=== PATIENT | male | born 1970 | race Caucasian/White ===

== ENCOUNTER 2021-09-06 13:36 | Outpatient (REF) | payer OTHER, SELFPAY ==
--- NOTE | ~2021-09-06 | US_ITS ---
EXAMINATION: US ABDOMEN COMPLETE CLINICAL INFORMATION: Epigastric abdominal pain. COMPARISON: None TECHNIQUE: Real-time imaging of the abdominal viscera. FINDINGS: PANCREAS: The head and body the pancreas are normal. The tail is not well seen due to bowel gas. ABDOMINAL AORTA: The proximal, mid, and distal segments are normal in caliber. INFERIOR VENA CAVA: Visualized portions are normal. LIVER: Normal. The liver is normal in size. The liver contour is normal. Parenchymal echogenicity is normal. No focal hepatic lesion. There is no intrahepatic biliary duct dilatation seen. GALLBLADDER: Normal. The gallbladder is physiologically distended without evidence of stones, sludge, polyps, wall thickening or pericholecystic fluid. COMMON BILE DUCT: Normal in caliber measuring 0.32 cm in diameter. RIGHT KIDNEY: Normal. No hydronephrosis. No renal calculi or focal parenchymal lesions. The kidney measures 12.8 cm in maximum dimension. LEFT KIDNEY: Normal. No hydronephrosis. No renal calculi or focal parenchymal lesions. The kidney measures 12.8 cm in maximum dimension. SPLEEN: Normal. The spleen measures 10.7 cm in maximum dimension. FREE FLUID: None. US/US abdomen complete IMPRESSION: Limited visualization of the tail the pancreas otherwise normal abdominal ultrasound.
== END 2021-09-06 13:37 | disposition home or self-care (01) ==
LOC: HO.HMGCX 13:36
PROVIDERS: Visit Provider Internal Medicine Medical Oncology
DX: R10.13 Epigastric pain (principal)
CPT/HCPCS: 76700

== ENCOUNTER 2022-06-12 08:55 | Emergency (ER) | payer OTHER, SELFPAY ==
--- NOTE | ~2022-06-12 | XR_ITS ---
EXAMINATION: XR CHEST CLINICAL INFORMATION: Palpitations COMPARISON: None TECHNIQUE: 2 views of the chest were obtained. FINDINGS: No significant abnormality is noted involving the heart, lungs, mediastinum, bony thorax or soft tissues. XR/XR chest 2V IMPRESSION: Unremarkable chest examination.
[2022-06-12 08:58] VITALS: BP 154/85; PULSE 87; RESP 18; TEMP 36.6; O2SAT 98; BMI 38.7
--- NOTE | 2022-06-12 09:19 | ECG_ITS ---
Test Reason : PALPITATIONS Blood Pressure : / mmHG Vent. Rate : 086 BPM Atrial Rate : 000 BPM P-R Int : 000 ms QRS Dur : 104 ms QT Int : 354 ms P-R-T Axes : 000 -01 011 degrees QTc Int : 423 ms Atrial fibrillation Abnormal ECG No previous ECGs available Referred By: Judie Chowdhury Electronically Signed By:RENÉE ZHENG MD
--- NOTE | 2022-06-12 09:29 | ED.ARRPALP ---
HPI - Arrhythmia/Palpitations General Chief Complaint: Arrhythmia/Palpitations Stated Complaint: feels funny heart rate Time Seen by Provider: 06/12/22 09:18 Source: patient and family Mode of arrival: ambulatory Limitations: no limitations History of Present Illness HPI narrative: 52-year-old male with a history of hypertension presents with complaints of heart palpitations since yesterday. Per patient yesterday with waking he felt like his heart was racing and irregular. He seemed to feel better throughout the day but has similar episodes this morning. He used his 's Apple watch which told him that he was in atrial fibrillation with a heart rate of 80. He denies any history of AFib. No chest pain, shortness of breath, leg swelling or leg pain, fevers, chills, cough. Related Data Home Medications Medication Instructions Recorded Confirmed lisinopril 10 mg tablet 10 mg PO DAILY 04/14/20 tadalafil 20 mg tablet 20 mg PO DAILY PRN 04/14/20 Previous Rx's Medication Instructions Recorded apixaban 5 mg tablet (Eliquis) 5 mg PO BID #60 tabs 06/12/22 metoprolol succinate 25 mg 25 mg PO DAILY #30 tabs 06/12/22 tablet,extended release 24 hr (Toprol XL) Allergies Allergy/AdvReac Type Severity Reaction Status Date / Time No Known Allergies Allergy Verified 06/12/22 09:09 Review of Systems Review of Systems: Yes all other systems are reviewed and are negative Constitutional: Constitutional: Reports no additional constitutional complaints, Denies body ache(s), Denies chills, Denies fever(s), Denies headache(s) and Denies weakness Eyes: Eyes: Reports no additional eye complaints and Denies change in vision ENT: Reports system reviewed and no additional complaints, except as documented, Denies dizziness, Denies headache(s), Denies nasal congestion, Denies nasal discharge and Denies neck pain Cardiovascular: Cardiovascular: Reports no additional cardiovascular complaints, Denies chest pain, Denies leg edema, Reports palpitations and Denies dyspnea Respiratory: Respiratory: Reports no additional respiratory complaints, Denies cough and Denies dyspnea Gastrointestinal: Gastrointestinal: Reports no additional gastrointestinal complaints, Denies abdominal pain, Denies diarrhea, Denies nausea and Denies vomiting Genitourinary: Genitourinary: Denies urinary incontinence Musculoskeletal: Musculoskeletal: Reports no additional musculoskeletal complaints, Denies back pain, Denies arthralgias, Denies joint swelling, Denies neck pain, Denies numbness and Denies tingling Integumentary/Breasts: Skin/Breast: Reports system reviewed and no additional complaints, except as docu and Denies rash Neurologic: Reports system reviewed and no additional complaints, except as documented, Denies Abnormal speech present, Denies dizziness, Denies headache(s), Denies numbness, Denies tingling and Denies weakness Endocrine: Endocrine: Reports palpitations PMFSH Past Medical History Attestation statement: The following information was validated with the patient. Source: old records reviewed and nursing notes reviewed Medical History Hypertension Surgical History History of bone marrow biopsy History of lymph node biopsy Social History Social History Advance Directives: No Advance Directives Information Provided: Yes Physical Exam Vital Signs: Vital Signs: Last Vital Signs Temp 97.8 F 06/12/22 08:58 Pulse 92 06/12/22 11:21 Resp 18 06/12/22 11:21 BP 118/83 06/12/22 11:21 Pulse Ox 96 06/12/22 11:21 O2 Del Method 06/12/22 11:21 BMI result Body Mass Index 38.7 Const: General: cooperative, healthy appearing, comfortable and no acute distress Orientation/consciousness: patient oriented x3 Limitations: no limitations HEENT: Head: Yes normal to inspection Ears: hearing grossly normal bilaterally General nose exam: Normal external nose present Face and sinus: Yes normal facial exam Mouth: Normal oral and palatal mucosa present Throat: Yes posterior oropharynx normal Eyes: General: appearance normal, both eyes and all related structures Pupils: Equal, round and reactive pupils present Neck: Neck: Yes normal visual inspection Chest: Chest palpation & inspection: normal inspection of the chest Resp: Effort & Inspection: normal respiratory effort Auscultation: clear to auscultation bilaterally Cardio: Rate: regular rate Rhythm: abnormal rhythm irregularly irregular Peripheral pulses: Peripheral pulses 2+ throughout GI: Inspection: Yes normal to inspection Palpation (GI): Soft to palpation and nontender Auscultation: normal bowel sounds Back/Spine/Pelvis: Thoracic/Lumbar Spine: thoracic and lumbar spine normal to inspection Skin: General skin exam: no rashes or lesions noted Neuro: General: patient oriented x3, no focal motor deficits and normal sensation to monofilament Cranial nerves: Yes Equal, round and reactive pupils present Cognition (Neuro): normal cognition Speech: No Abnormal speech present Gait exam (Neuro): Normal gait present Motor exam (neuro): 5/5 motor strength present throughout Extrem: General: Yes normal to inspection, Yes no pedal edema and Yes no calf tenderness Medical Decision Making Medical Decision Making [facility] Narrative: 52-year-old male with history of hypertension presents with heart palpitations since yesterday. Patient reports his Apple watch told him he was in AFib with a heart rate of 80. On arrival vital stable. Irregular pulse. Lungs clear. Will obtain EKG, labs, chest x-ray, COVID screen Differential Diagnosis Differential Diagnoses: The differential diagnosis associated with the presentation includes AFib Admission/Observation Consideration of admission/observation: Escalation of care including admission/observation considered Rate is controlled-patient with mild symptoms Chads score is 1 for hypertension history Admission not necessary Consult Healthcare Provider Management of the patient was discussed with: Cosmetic Dentist (Cardiology) Spoke to Dr. Garcia from Cardiology. Plans for discharge home with Cardiology follow-up. We discussed anticoagulating the patient as he is low risk with a chads score of 1. However cardiology anticipate that patient will likely be cardioverted outpatient and due to this we will start him on anticoagulation. Also recommended Toprol 25 mg XL daily. Patient was given instructions on starting anticoagulation. He was given a 30 day free trial coupon. He received his 1st dose in the emergency room. Lab Data [facility] Lab Attestation statement: I reviewed the patient's lab results. 06/12/22 09:56 06/12/22 09:56 Labs: Lab Results 06/12/22 06/12/22 06/12/22 Range/Units 09:56 09:56 09:56 WBC 9.5 (4.8-10.8) X10*3/uL RBC 5.23 (4.60-5.80) X10*6/uL Hgb 16.0 (14.0-18.0) g/dl Hct 46.6 (42.0-52.0) % MCV 89.1 (80.0-98.0) fL MCH 30.6 (27.0-33.0) pg MCHC 34.3 (31.0-36.0) g/dl RDW 12.7 (11.0-16.0) % Plt Count 275 (160-400) X10*3/uL MPV 8.6 L (9.4-12.4) fL Immature Gran % (Auto) 0.4 (0.0-0.4) % Neut % (Auto) 73.1 H (45-73) % Lymph % (Auto) 18.4 L (20-40) % Kings[place] % (Auto) 5.9 (2-11) % Eos % (Auto) 1.7 (0-4) % Baso % (Auto) 0.5 (0-2) % Lymph # (Auto) 1.8 (1.2-4.9) X10*3/uL [place] # (Auto) 0.6 (0.1-1.2) X10*3/uL Eos # (Auto) 0.2 (0.0-0.4) X10*3/uL Baso # (Auto) 0.1 (0.0-0.2) X10*3/uL Abs Immat Gran (auto) 0.04 H (0.00-0.03) X10*3/uL Absolute Neuts (auto) 7.0 (2.0-8.3) x10*3/uL Absolute Nucleated RBC 0.000 (0.0-0.012) X10*3/uL Nucleated RBC % (auto) 0.0 (0.0-0.2) /100WBC PT 12.1 (10.0-13.1) SEC INR 1.1 (0.9-1.1) Sodium 140 (135-145) mmol/L Potassium 4.2 (3.3-5.1) mmol/L Chloride 109 H (96-108) mmol/L Carbon Dioxide 24 (22-29) mmol/L Anion Gap 11 L (12-20) BUN 12 (9-16) mg/dL Creatinine 0.86 (0.5-1.4) mg/dL Estim Creat Clear Calc 126.8 Estimated GFR > 60 Random Glucose 109 (60-115) mg/dL Calcium 9.1 (8.4-10.2) mg/dL Magnesium 1.9 (1.6-2.6) mg/dL Total Bilirubin 1.1 H (0.0-1.0) mg/dL Direct Bilirubin 0.3 (0.0-0.5) mg/dL AST 16 (5-37) U/L ALT 17 (0-40) U/L Alkaline Phosphatase 75 (39-117) U/L Troponin I High Sens (<3.5-35.0) ng/L Total Protein 7.0 (6.5-8.0) g/dL Albumin 4.1 (3.5-5.0) g/dL TSH (0.32-4.0) uIU/mL COVID-19 (CAT) (Negative) COVID-19 Clin Com 06/12/22 06/12/22 06/12/22 Range/Units 09:56 10:07 10:07 WBC (4.8-10.8) X10*3/uL RBC (4.60-5.80) X10*6/uL Hgb (14.0-18.0) g/dl Hct (42.0-52.0) % MCV (80.0-98.0) fL MCH (27.0-33.0) pg MCHC (31.0-36.0) g/dl RDW (11.0-16.0) % Plt Count (160-400) X10*3/uL MPV (9.4-12.4) fL Immature Gran % (Auto) (0.0-0.4) % Neut % (Auto) (45-73) % Lymph % (Auto) (20-40) % Kingsbury % (Auto) (2-11) % Eos % (Auto) (0-4) % Baso % (Auto) (0-2) % Lymph # (Auto) (1.2-4.9) X10*3/uL Kingsbury # (Auto) (0.1-1.2) X10*3/uL Eos # (Auto) (0.0-0.4) X10*3/uL Baso # (Auto) (0.0-0.2) X10*3/uL Abs Immat Gran (auto) (0.00-0.03) X10*3/uL Absolute Neuts (auto) (2.0-8.3) x10*3/uL Absolute Nucleated RBC (0.0-0.012) X10*3/uL Nucleated RBC % (auto) (0.0-0.2) /100WBC PT (10.0-13.1) SEC INR (0.9-1.1) Sodium (135-145) mmol/L Potassium (3.3-5.1) mmol/L Chloride (96-108) mmol/L Carbon Dioxide (22-29) mmol/L Anion Gap (12-20) BUN (9-16) mg/dL Creatinine (0.5-1.4) mg/dL Estim Creat Clear Calc Estimated GFR Random Glucose (60-115) mg/dL Calcium (8.4-10.2) mg/dL Magnesium (1.6-2.6) mg/dL Total Bilirubin (0.0-1.0) mg/dL Direct Bilirubin (0.0-0.5) mg/dL AST (5-37) U/L ALT (0-40) U/L Alkaline Phosphatase (39-117) U/L Troponin I High Sens 3.6 (<3.5-35.0) ng/L Total Protein (6.5-8.0) g/dL Albumin (3.5-5.0) g/dL TSH 0.92 (0.32-4.0) uIU/mL COVID-19 (CAT) Negative (Negative) COVID-19 Clin Com See Note Independent Interpretation I performed an independent interpretation of an: EKG (EKG shows AFib with rate of 86-I independently reviewed the EKG) and Plain X-Ray (I independently reviewed the chest x-ray which shows no acute finding) Radiology Impression Discussion of test interpretation with radiology: I have reviewed the radiologist's reading. Radiologist Impression: EXAMINATION: XR CHEST CLINICAL INFORMATION: Palpitations COMPARISON: None TECHNIQUE: 2 views of the chest were obtained. FINDINGS: No significant abnormality is noted involving the heart, lungs, mediastinum, bony thorax or soft tissues. XR/XR chest 2V IMPRESSION: Unremarkable chest examination. Independent Historian Clinical information obtained from an independent historian. History obtained from or confirmed by: Spouse Chronic Conditions Patient?s care impacted by: Hypertension Discharge Plan Discharge Clinical Impression: Atrial fibrillation Patient Disposition: Home, Self-Care Instructions: A-fib (Atrial Fibrillation) (DC), Blood Thinners (ED) Additional Instructions: Your heart is in a irregular rhythm. We spoke to the jewel gauger. They will plan on seeing you outpatient in you may need a cardioversion We are putting on blood thinning medication. Be aware that this puts you at increased risk for bleeding. Please return if you fall and hit your head, have blood in her stool or in her urine Prescriptions: New metoprolol succinate [Toprol XL] 25 mg tablet extended release 24 hr 25 mg PO DAILY Qty: 30 0RF Eliquis 5 mg tablet 5 mg PO BID Qty: 60 0RF Referrals: Pelon Garcia MD [Physician] - 1 week
[2022-06-12 10:02] LABS: MANUAL DIFF FLAG NO
[2022-06-12 10:07] LABS: Basophils Absolute Auto 0.1 X10*3/uL (0.0-0.2); Basophils Percent Auto 0.5 % (0-2); Eosinophils Absolute Auto 0.2 X10*3/uL (0.0-0.4); Eosinophils Percent Auto 1.7 % (0-4); Hematocrit 46.6 % (42.0-52.0); Imm Gran Abs Auto 0.04 X10*3/uL (0.00-0.03); Imm Gran Pct Auto 0.4 % (0.0-0.4); Lymphocytes Absolute Auto 1.8 X10*3/uL (1.2-4.9); Lymphocytes Percent Auto 18.4 % (20-40); Mean Corpuscular HGB Conc 34.3 g/dl (31.0-36.0); Mean Corpuscular Hemoglobin 30.6 pg (27.0-33.0); Mean Corpuscular Volume 89.1 fL (80.0-98.0); Mean Platelet Volume 8.6 fL (9.4-12.4); Monocytes Absolute Auto 0.6 X10*3/uL (0.1-1.2); Monocytes Percent Auto 5.9 % (2-11); Neutrophils Percent Auto 73.1 % (45-73); Platelet Count 275 X10*3/uL (160-400); Red Blood Count 5.23 X10*6/uL (4.60-5.80); Red Cell Distribution Width 12.7 % (11.0-16.0); White Blood Count 9.5 X10*3/uL (4.8-10.8)
--- NOTE | 2022-06-12 10:15 | PC.NURSE ---
Patient AOx 4 neuros intact denies SOB or chest pain, felt palpitations yesterday found to be in A fib no history of A fib. No facial droop no deviation of tongue PEÑA with purpose no drift noted IV acces obtained labs collected and sent patient had X ray
[2022-06-12 10:16] LABS: INTERNATIONAL NORM RATIO 1.1 (0.9-1.1); Prothrombin Time 12.1 SEC (10.0-13.1)
[2022-06-12 10:29] LABS: COVID-19 Test Negative (Negative); IDNOW Serial# 16C4AD1C
[2022-06-12 10:34] LABS: Alanine Aminotransferase 17 U/L (0-40); Albumin Level 4.1 g/dL (3.5-5.0); Alkaline Phosphatase 75 U/L (39-117); Anion Gap 11 (12-20); Aspartate Amino Transferase 16 U/L (5-37); Bilirubin Direct 0.3 mg/dL (0.0-0.5); Bilirubin Total 1.1 mg/dL (0.0-1.0); Blood Urea Nitrogen 12 mg/dL (9-16); Calcium 9.1 mg/dL (8.4-10.2); Carbon Dioxide 24 mmol/L (22-29); Chloride 109 mmol/L (96-108); Creatinine Clr Calc Pharmacy 126.8; Estimated Glomerular Filt Rate > 60; Glucose Random 109 mg/dL (60-115); Magnesium 1.9 mg/dL (1.6-2.6); Potassium 4.2 mmol/L (3.3-5.1); Sodium 140 mmol/L (135-145)
[2022-06-12 10:41] LABS: Troponin-I High Sensitivity 3.6 ng/L (<3.5-35.0)
[2022-06-12 10:55] LABS: TSH reflex Free T4 0.92 uIU/mL (0.32-4.0)
[2022-06-12 11:21] VITALS: BP 118/83; PULSE 92; RESP 18; O2SAT 96
[2022-06-12] MEDS: Apixaban 5 MG TABLET PO (11:25)
== END 2022-06-12 11:29 | disposition home or self-care (01) ==
PROVIDERS: Nurse Practitioner Family; Emergency Provider Emergency Medicine; PCP Internal Medicine Medical Oncology
DX: R00.2 Palpitations (principal); I48.91 Unspecified atrial fibrillation; Z20.822 Contact with and (suspected) exposure to COVID-19; Z20.828 Contact with and (suspected) exposure to other viral communicable diseases; Z79.899 Other long term (current) drug therapy
CPT/HCPCS: 36415; 71046; 80048; 80076; 83735; 84443; 84484; 85025; 85610; 87635; 93005; 99284

== ENCOUNTER → 2022-06-23 14:10 | Outpatient (BNVA) | payer OTHER, SELFPAY | PROVIDERS: PCP Internal Medicine Medical Oncology; Visit Provider Nurse Practitioner Family | DX: I48.91 Unspecified atrial fibrillation (principal) | CPT/HCPCS: 93005 ==

== ENCOUNTER → 2022-07-04 07:43 | Outpatient (REF) | payer OTHER, SELFPAY ==
--- NOTE | 2022-07-04 07:50 | HM_ITS ---
* Total monitoring time approximately 3 days. * Underlying rhythm is sinus. Average ventricular rate 58/Min. Range 42 to 93/Min. * Very rare PVCs and PACs. Minimal burden. * No significant pauses or AV blocks. * No diary events or marker. MTDD
--- NOTE | 2022-07-04 07:50 | CA_ITS ---
Transthoracic Echocardiogram Patient (Last, First, Middle): RICK ESTRELLA, Gender: Male Date of : 1970 Age: 52 Procedure Date: 07/04/2022 Procedure Type: Transthoracic Echocardiogram Location: OP Height: 185.42 cm Weight: 115.67 kg BSA: 2.39 m2 Heart Rate: 64 bpm BP: 114 / 68 mmHg Ethnic Studies Professor: ED Referring MD: Qi Simth VAT TENDER[employer] Chemistry Technician: Kamran Morris MD Symptoms: I48.91 - Unspecified atrial fibrillation Study Quality: Technically Difficult ECG Rhythm: Sinus Conclusions: - 1. Technically limited study despite use of contrast agent 2. Normal LV systolic function with impaired relaxation filling pattern 3. Limited visualization cardiac well with cardiac valvular Doppler within normal limits Findings Procedure Information Contrast agent, definity, is being given per protocol without apparent complications. Left Ventricle Normal left ventricular size, thickness, and systolic function. The visually estimated ejection fraction is between 55-60%. Spectral Doppler is indicative of an impaired relaxation filling pattern. E/E prime ratio is between 8 and 15 consistent with indeterminate filling pressures. Right Ventricle The right ventricle was not well visualized. Atria The left atrium is likely dilated. There is a mobile atrial septum noted. Interatrial shunt cannot be excluded. The right atrium was not well visualized. Aortic Valve The aortic valve structure and function is likely normal. There is no aortic valve stenosis. There is no aortic valve regurgitation. Mitral Valve The mitral valve was not well visualized. There is trace mitral valve regurgitation. There is no mitral valve stenosis. Pulmonic Valve The pulmonic valve was not well visualized. Tricuspid Valve The tricuspid valve was not well visualized. Tricuspid regurgitation envelope is inadequate for calculation of right ventricular systolic pressure. Great Vessels The aorta was not well visualized. The pulmonary artery was not well visualized. Venous The inferior vena cava is normal in size and collapses greater than 50% with inspiration. Pericardium/Pleural The pericardium was not well visualized. Prior Study Comparison No prior study available for comparison. Measurements 2D Linear Measurements IVSd: 1.08 0.6-0.9/0.6-1.0 cm LVIDd: 5.58 3.9-5.3/4.2-5.9 cm LVIDd Index: 2.33 2.4-3.2/2.2-3.1 cm/m2 LVIDs: 3.99 2.0-3.6 cm LVPWd: 0.67 0.7-1.1 cm LA Diam: 4.20 2.7-3.8/3.0-4.0 cm LAIDs Index: 1.76 1.5-2.3 cm/m2 LV Mass: 229.57 67-162/88-224 g LV Mass Index: 96.05 43-95/49-115 g/m2 LVOT Diam: 2.50 3.0+(-)1.3 cm 2D Systolic Function EF 4C: 54.90 >55% EF 2C: 59.60 >55% EF BiP: 58.20 >55% Mitral Valve MV Pk E: 0.75 MV PK A: 0.49 MV Decel Time: 248.00 E/A: 1.50 E'Lateral: 14.20 E'Medial: 9.95 E/E' Med: 7.50 E/E' Lat: 5.30 PHT: 73.00 MVA PHT: 3.01 Decel Kings: 3.02 Aortic Valve AoV Pk Colin: 1.46 AoV Mn Colin: 1.00 AoV VTI: 0.31 AoV Pk Grad: 9.00 Aov Mn Grad: 5.00 CHRISTIANE Cont.VTI: 4.34 LVOT LVOT Pk Colin: 1.37 LVOT Mn Colin: 0.93 LVOT VTI: 0.28 LVOT Pk Grad: 8.00 LVOT Mn Grad: 4.00 LVOT Diam: 2.50 LVOT Area: 4.91 Diastolic Function MV Pk E: 0.75 MV Pk A: 0.49 E/A: 1.50 E'Medial: 9.95 E/E' Med: 7.50 E' Laterial: 14.20 E/E' Lat: 5.30 Right Ventricle TAPSE (mm): 28.10 TVS' Colin: 17.00 Tricuspid Valve RA Press: 3.00 Great Vessels Aorta Sinus of Valsalva: 3.40 2.0-3.5 cm Ao Asc: 3.80 2.1-3.4 cm Pulmonary Valve PV Pk Colin: 1.34 Peak PV Grad: 7.00 Updated in Other Vendor System with Status of Final Kamran Morris MD electronically signed on 07/05/2022 5:11:12 PM with status of Final
== END ==
LOC: HO.CARD 07:43
PROVIDERS: Visit Provider Nurse Practitioner Family
DX: I10 Essential (primary) hypertension (principal); I48.91 Unspecified atrial fibrillation
CPT/HCPCS: 93242; 93306; Q9957

== ENCOUNTER → 2022-07-11 08:49 | Outpatient (REF) | payer OTHER, SELFPAY ==
--- NOTE | 2022-07-11 08:51 | CA_ITS ---
Acquisition Time: 2022-07-11 09:03:55 Total Exercise Time: 00:09:00 Test Indications: AFIB Medications: SEE CHART Protocol: PARIS Max HR: 151 BPM 88% of Pred: 170 BPM Max BP: 220/080 mmHG Max Work Load: 10.1 METS Exercise stress test with exercise 9 min of Paris protocol, achieving 88% MPHR, 10-.1 METs, with fatigue and need to stop, with mild sob, no chest discomfort, with isolated PAC, PVC and few ventricular cuplets, with hypertensive response to exercise with max BP 220/80, without EKG changes meeting criteria for ischemia. In recovery his BP came back down to 142/78. Test reviewed with Dr Garcia Referred By: Qi Smith Overread By: QI SMITH
== END ==
LOC: HO.CARD 08:49
PROVIDERS: Visit Provider Nurse Practitioner Family
DX: I48.91 Unspecified atrial fibrillation (principal)
CPT/HCPCS: 93017

== ENCOUNTER → 2022-07-22 09:27 | Outpatient (REF) | payer OTHER, SELFPAY | LOC: HO.SL 09:27 | PROVIDERS: PCP Internal Medicine Medical Oncology; Visit Provider Nurse Practitioner Family | DX: G47.10 Hypersomnia, unspecified (principal); I10 Essential (primary) hypertension; I48.0 Paroxysmal atrial fibrillation | CPT/HCPCS: 95806 ==

== ENCOUNTER → 2022-08-09 14:08 | Outpatient (BNVA) | payer OTHER, SELFPAY | PROVIDERS: PCP Internal Medicine Medical Oncology; Referring Provider Internal Medicine Medical Oncology; Visit Provider Nurse Practitioner Family | DX: Z13.89 Encounter for screening for other disorder (principal) ==

== ENCOUNTER 2023-02-20 15:24 | Outpatient (AMB) | payer OTHER, SELFPAY ==
--- NOTE | 2023-02-20 15:28 | A.OFFVIS_ITS ---
Intake Vital Signs 02/20/23 15:29 Height 5 ft 8 in Weight 264 lb 8.875 oz BMI 40.2 BP 140/88 H Blood Pressure Location Lt brachial Position Sitting Pulse 69 Intake Visit Reasons: 6 mth f/up DC Intake Note: 6 month follow up Fitting Room Operator Required: No Accompanied by: Self / Same As Patient Allergies No Known Allergies Allergy (Verified 02/20/23 15:30) Medication List - Last Reconciled 02/20/23 by Pelon Garcia MD lisinopril 10 mg PO DAILY metoprolol succinate ER 25 mg PO DAILY tadalafil 20 mg PO DAILY PRN HPI HPI Comments History of Present Illness Details 52 year old with PAF. CHADSVasc 1. Not on anticoagulation. No significant episodes of Afib. Some palpitations off and on but he has apple watch and he has not seen any Afib recordings. BP control ok. [facility] Medical History (Updated 08/09/22 @ 16:46 by JESUS HerreraC) Paroxysmal A-fib Hypertension Surgical History History of lymph node biopsy History of bone marrow biopsy Social History Alcohol intake: current Alcohol intake frequency: a few times a month Alcohol type: beer, wine and hard liquor Patient Tobacco Use Status: Never used Tobacco Review of Systems Const Denies weakness ENT Denies dizziness Card Denies chest pain, Denies chest pain with activity, Denies syncope, Denies rapid heart rate, Denies pedal edema, Denies edema, Denies leg edema, Denies lightheadedness, Denies palpitations, Denies dyspnea, Denies dyspnea on exertion and Denies orthopnea Resp Denies cough, Denies dyspnea and Denies dyspnea on exertion GI Denies hematochezia and Denies change in stool character Musc Denies abnormal gait, Denies muscle cramps, Denies muscle weakness, Denies numbness, Denies radiating pain into limb and Denies tingling Neuro Denies abnormal gait, Denies dizziness, Denies syncope, Denies numbness, Denies tingling and Denies weakness Endo Denies palpitations Physical Exam Vital Signs: Last Vital Signs Pulse 69 02/20/23 15:29 BP 140/88 H 02/20/23 15:29 BMI result Body Mass Index 40.2 GENERAL APPEARANCE: in no acute distress, pleasant. NECK: no carotid bruit, no jugular venous distention. SKIN: no suspicious lesions, warm and dry. HEART: no murmurs, regular rate and rhythm. LUNGS: clear to auscultation bilaterally. ABDOMEN: soft, nontender. EXTREMITIES: no edema. PERIPHERAL PULSES: equal. NEUROLOGIC: No gross deficits, AAO X 3 Assessment & Plan Assessment & Plan (1) Paroxysmal A-fib: Code(s): I48.0 - Paroxysmal atrial fibrillation (2) Hypertension: Code(s): I10 - Essential (primary) hypertension Plan 52-year-old gentleman here for follow-up. He has paroxysmal atrial fibrillation. He is asymptomatic at this point. Chads Vasc is 1 and he has not been on anticoagulation. Clinically stable currently. Continue same medications for now. Follow-up with tone in 6 months. Thank you for allowing me to participate in the care of your patient. Please feel free to contact me if you have any questions. Coding Level of Care Code Est Pt Level 4 (49159) Diagnoses Paroxysmal A-fib I48.0 Hypertension I10
[2023-02-20 15:29] VITALS: BP 140/88; PULSE 69; BMI 40.2
== END 2023-02-20 16:21 | disposition home or self-care (01) ==
PROVIDERS: PCP Internal Medicine Medical Oncology; Visit Provider Internal Medicine Cardiovascular Disease
DX: I48.0 Paroxysmal atrial fibrillation (principal); I10 Essential (primary) hypertension
CPT/HCPCS: 99214

== ENCOUNTER → 2023-02-20 15:24 | Outpatient (BNVA) | payer OTHER, SELFPAY | PROVIDERS: PCP Internal Medicine Medical Oncology; Visit Provider Internal Medicine Cardiovascular Disease ==

== ENCOUNTER 2023-03-07 06:23 | Day surgery (SDC) | payer OTHER, SELFPAY ==
--- NOTE | 2023-03-03 11:10 | HO.ANESPROP2 ---
Documented by User: Marlene Nieves NP 03/03/23 11:12 HPI - Anesthesia Eval Consult details Narrative: 53yo M for Colonoscopy Follows [facility] cardiology for afib. Per 01/2023 office visit, no anticoag PMFSH Active Problems Active Problems: All Active Problems (Updated 03/03/23 @ 10:39 by Erin Jung RN) Obstructive sleep apnea (Acute) Hypersomnia (Acute) Paroxysmal A-fib (Acute) Hypertension (Acute) Past Medical History Medical History Non-Hodgkin lymphoma Paroxysmal A-fib Hypertension Surgical History Surgical History History of lymph node biopsy History of bone marrow biopsy Social History Social History Alcohol intake: current Alcohol intake frequency: holidays/special occasions only Alcohol type: beer, wine and hard liquor Patient Tobacco Use Status: Never used Tobacco Are you DNR?: No Advance Directives: No Advance Directives Information Provided: Yes Meds Allergies Allergy/AdvReac Type Severity Reaction Status Date / Time No Known Allergies Allergy Verified 02/20/23 15:30 Home Medications Medication Instructions Recorded Confirmed Last Taken Type lisinopril 10 mg tablet 10 mg PO DAILY 04/14/20 02/20/23 03/06/23 History Exam Exam Date and Time: March 03, 2023 1110 Pertinent Lab Results Pertinent Lab Results: Laboratory Tests 06/12/22 09:56 WBC 9.5 Hgb 16.0 Hct 46.6 Plt Count 275 Sodium 140 Potassium 4.2 Chloride 109 H Carbon Dioxide 24 BUN 12 Creatinine 0.86 Assessment and Plan Assessment Anesthesia Assessment: Chart Reviewed Documented by User: Itz Oro MD 03/07/23 07:52 PMFSH Past Medical History Medical History Non-Hodgkin lymphoma Paroxysmal A-fib Hypertension Family History Family history of problems with anesthesia: No Surgical History Surgical History History of lymph node biopsy History of bone marrow biopsy History of Problems with Anesthesia: No Social History Social History Alcohol intake: current Alcohol intake frequency: holidays/special occasions only Alcohol type: beer, wine and hard liquor Patient Tobacco Use Status: Never used Tobacco Are you DNR?: No Advance Directives: No Advance Directives Information Provided: Yes Meds Allergies Allergy/AdvReac Type Severity Reaction Status Date / Time No Known Allergies Allergy Verified 02/20/23 15:30 Home Medications Medication Instructions Recorded Confirmed Last Taken Type lisinopril 10 mg tablet 10 mg PO DAILY 04/14/20 02/20/23 03/06/23 History Exam Airway Mallampati Class: II TM Dist: >3cm Neck ROM: Full Assessment and Plan Final Anesthetic Review Family History of Problems with Anesthesia: No History of Problems with Anesthesia: No NPO: Yes ASA Class: III Final Preanesthetic Review: No Changes in Pt Med Stat, Meds/Allgs Chart Reviewed, Consent Obtained/Reviewed and Anes Risks/Benef Reviewed Patient Risk: Intermediate Procedure Risk: Low Anesthetic Plan Disposition: Standard PACU
[2023-03-07 06:27] VITALS: BMI 33.9
[2023-03-07 06:41] VITALS: BP 139/92; PULSE 68; RESP 20; TEMP 36.3; O2SAT 98
--- NOTE | 2023-03-07 07:32 | MHC.SHP ---
Pre-Procedural Eval Section A Date of Service: 03/07/23 Section B Chief Complaint: Screening Details of Present Illness: see H&P no changes Relevant Family History (Specify if Yes): No Relevant Social History: None Present Medications: see Short Stay Collaborative assessment Medical History: No relevant PMH History of Previous Operations: No relevant previous surgery Allergies: Allergies Allergy/AdvReac Type Severity Reaction Status Date / Time No Known Allergies Allergy Verified 02/20/23 15:30 Review of Systems Sugical H&P ROS: Negative: Constitution, Cardiovascular, Respiratory, Neurological, Psychiatric, Hem-Onc, Allergic/Immunologic, Gastrointestinal, Genitourinary, Musculoskeletal, Integumentary, Endocrine and Eyes/Ears/Nose/Throat Exam Surgical H&P Exam: Normal: HEENT, Normal: Heart, Normal: Lungs, Normal: Extremities, Normal: Abdomen, Normal: Skin and Normal: Neurological Plan Diagnosis/Plan: Unchanged I have reviewed the history and physical and performed a pertinent physical examination on my patient. No changes have occurred unless specified. Time Spent With Patient Time: Total time managing care of this patient today ____ minutes.
[2023-03-07 08:11] VITALS: BP 113/73; PULSE 61; RESP 14; TEMP 36.2; O2SAT 96
[2023-03-07 08:26] VITALS: BP 126/72; PULSE 51; RESP 16; O2SAT 99
[2023-03-07 08:36] VITALS: BP 127/77; PULSE 60; RESP 16; TEMP 36.3; O2SAT 98
== END 2023-03-07 08:57 | disposition home or self-care (01) ==
PROVIDERS: PCP Internal Medicine Medical Oncology; Visit Provider Internal Medicine Gastroenterology
PROC: 0DJD8ZZ Inspection of Lower Intestinal Tract, Via Natural or Artificial Opening Endoscopic (ICD-10-PCS; CPT 45378; principal; 2023-03-07 07:30)
DX: Z12.11 Encounter for screening for malignant neoplasm of colon (principal); K63.5 Polyp of colon; K64.8 Other hemorrhoids; I10 Essential (primary) hypertension; C85.90 Non-Hodgkin lymphoma, unspecified, unspecified site; I48.0 Paroxysmal atrial fibrillation; G47.33 Obstructive sleep apnea (adult) (pediatric); Z79.899 Other long term (current) drug therapy
CPT/HCPCS: 45385; 45380; 88305

== ENCOUNTER 2023-08-03 13:28 | Outpatient (REF) | payer OTHER, SELFPAY ==
--- NOTE | ~2023-08-03 | XR_ITS ---
EXAMINATION: XR ABDOMEN COMPLETE CLINICAL INDICATION: Obstruction COMPARISON: NONE TECHNIQUE: 2 views of the abdomen. FINDINGS: Multiple dilated thick-walled small bowel loops are seen, largest diameter in the range of 6.5 cm. Right hemicolonic feces. Paucity of feces and air in the descending colon. Small crescentic air collection in the rectum. Solid visceral outlines are obscured. Lung bases are clear. Degenerative changes are noted. XR/XR abdomen min 2V IMPRESSION: Findings consistent with small bowel obstruction.
[2023-08-03 14:29] LABS: Basophils Absolute Auto 0.1 X10*3/uL (0.0-0.2); Basophils Percent Auto 0.4 % (0-2); Eosinophils Percent Auto 0.3 % (0-4); Hematocrit 45.4 % (42.0-52.0); Imm Gran Abs Auto 0.05 X10*3/uL (0.00-0.03); Imm Gran Pct Auto 0.4 % (0.0-0.4); Lymphocytes Absolute Auto 1.5 X10*3/uL (1.2-4.9); Mean Corpuscular HGB Conc 35.2 g/dl (31.0-36.0); Mean Corpuscular Hemoglobin 30.6 pg (27.0-33.0); Mean Corpuscular Volume 86.8 fL (80.0-98.0); Mean Platelet Volume 9.3 fL (9.4-12.4); Monocytes Absolute Auto 0.9 X10*3/uL (0.1-1.2); Monocytes Percent Auto 7.5 % (2-11); Neutrophils Absolute Auto 9.1 x10*3/uL (2.0-8.3); Neutrophils Percent Auto 78.4 % (45-73); Red Blood Count 5.23 X10*6/uL (4.60-5.80)
[2023-08-03 14:30] LABS: Platelet Count 262 X10*3/uL (160-400); White Blood Count 11.7 X10*3/uL (4.8-10.8)
[2023-08-03 15:01] LABS: Erythrocyte Sedimentation Rate 16 MM/HR (0-15)
[2023-08-03 15:20] LABS: Alanine Aminotransferase 25 U/L (0-40); Albumin Level 4.3 g/dL (3.5-5.0); Alkaline Phosphatase 63 U/L (39-117); Anion Gap 14 (12-20); Aspartate Amino Transferase 20 U/L (5-37); Bilirubin Total 0.8 mg/dL (0.0-1.0); Blood Urea Nitrogen 11 mg/dL (9-16); Calcium 9.6 mg/dL (8.4-10.2); Carbon Dioxide 22 mmol/L (22-29); Chloride 104 mmol/L (96-108); Estimated Glomerular Filt Rate > 60; Glucose Random 107 mg/dL (60-115); Lipase 42 U/L (8-78); Potassium 3.6 mmol/L (3.3-5.1); Sodium 136 mmol/L (135-145); Total Protein 7.8 g/dL (6.5-8.0)
[2023-08-03 16:27] LABS: Amylase 86 U/L (28-100)
== END 2023-08-03 13:29 | disposition home or self-care (01) ==
LOC: HO.XRAY 13:28
PROVIDERS: PCP Internal Medicine Medical Oncology; Visit Provider Internal Medicine Medical Oncology
DX: K56.609 Unspecified intestinal obstruction, unspecified as to partial versus complete obstruction (principal); R10.9 Unspecified abdominal pain
CPT/HCPCS: 36415; 74019; 80053; 82150; 83690; 85025; 85652

== ENCOUNTER 2023-08-04 09:31 | Outpatient (REF) | payer OTHER, SELFPAY ==
--- NOTE | ~2023-08-04 | XR_ITS ---
EXAMINATION: XR ABDOMEN WITH DECUBITUS VIEWS CLINICAL INDICATION: Abdominal pain. COMPARISON: Abdomen at 2:24 PM on 08/03/2023 TECHNIQUE: 2 views. FINDINGS: Upright and supine views of the abdomen reveals scattered dilated small bowel loops in the left upper and midabdomen. The stomach is mildly distended as well. There is scattered stool throughout the colon especially right colon. On upright view there is small bowel air-fluid levels in the upper abdomen. No free air is seen. There is no organomegaly. Moderate bridging osteophyte at L1-L2 disc level is noted. XR/XR abdomen w decubitus IMPRESSION: 1. Dilated small bowel loops in the left upper and mid abdomen with air-fluid levels in the upper abdomen. There is mild distention of the stomach. Findings suspicious for small bowel obstruction. 2. There is mild constipation.
== END 2023-08-04 09:32 | disposition home or self-care (01) ==
LOC: HO.XRAY 09:31
PROVIDERS: PCP Internal Medicine Medical Oncology; Visit Provider Internal Medicine Medical Oncology
DX: R10.9 Unspecified abdominal pain (principal); K56.609 Unspecified intestinal obstruction, unspecified as to partial versus complete obstruction
CPT/HCPCS: 74021

== ENCOUNTER 2023-08-08 05:50 | Outpatient (REF) | payer OTHER, SELFPAY ==
--- NOTE | ~2023-08-08 | CT_ITS ---
EXAMINATION: CT ABDOMEN AND PELVIS WITH CONTRAST CLINICAL INFORMATION: Abdominal pain. COMPARISON: KUB from 08/04/2023 TECHNIQUE: Multidetector volumetric images were obtained from the superior aspect of the liver through the pubic symphysis following administration 85 mL of Omnipaque 350 intravenous contrast. Sagittal and coronal reformatted images were obtained on the technologist's workstation. Oral contrast: No This CT examination was performed using dose optimization techniques as appropriate, variously including the following: *Automated exposure control *Adjustment of mA and/or kV according to patient size (this includes techniques or standardized protocols for targeted exams where dose is matched to indication/reason for exam; i.e. extremities or head) *Use of iterative reconstruction technique DLP: 790 mGy-cm FINDINGS: LUNG BASES: No pulmonary consolidation or pleural effusion. HEPATOBILIARY: The liver has normal size, shape, and attenuation. Gallbladder has a normal appearance. No radiopaque stones, wall thickening or pericholecystic fluid. No dilated bile ducts. PANCREAS: No edema, pancreatic ductal dilatation or mass. SPLEEN: Normal. ADRENAL GLANDS: Normal. KIDNEYS AND URETERS: The kidneys enhance symmetrically and have normal size and cortical thickness. No perinephric fluid collection, urolithiasis or hydroureteronephrosis. BLADDER: Normal. No calculi or wall thickening. BOWEL AND PERITONEUM: Stomach and small bowel have a normal appearance. Interval resolution of small bowel dilatation seen on radiographs from 08/04/2023. No pneumatosis intestinalis, pneumoperitoneum or free fluid. The appendix is normal. The colon and rectum are unremarkable. ABDOMINAL WALL: Unremarkable. VASCULATURE: Unremarkable. LYMPH NODES: No pathologic sized lymph nodes in the abdomen or pelvis. No inguinal lymphadenopathy. PELVIC VISCERA: Large prostate gland measures approximately 6 x 4.5 x 4.5 cm. MUSCULOSKELETAL: No acute or suspicious osseous abnormality. There are mild and moderate degenerative changes of the visualized lower thoracic and lumbar spine. Mild osteoarthritis of hips. Incidentally noted is asymmetric prominence of fatty marrow (or intraosseous lipoma) in the intertrochanteric region of the left femur. CT/CT abdomen pelvis w IV con IMPRESSION: * Interval resolution of small bowel dilatation compared to 08/04/2023. There is no evidence of inflammation or obstruction along the gastrointestinal tract on this CT imaging exam. * No nephrolithiasis or hydronephrosis. * Incidentally noted is prostatomegaly.
[2023-08-08] MEDS: iohexoL 350 MG/ML 100 ML INFUS..BTL IV (08:58)
[2023-08-08] MEDS: Barium Sulfate Oral (Berry) 450 ML ORAL.SUSP 900 ML PO (08:59)
== END 2023-08-08 05:51 | disposition home or self-care (01) ==
LOC: HO.CT 05:50
PROVIDERS: PCP Internal Medicine Medical Oncology; Visit Provider Internal Medicine Medical Oncology
DX: R10.9 Unspecified abdominal pain (principal); E66.8 Other obesity
CPT/HCPCS: 74177; Q9967

== ENCOUNTER 2023-08-10 07:29 | Outpatient (REF) | payer OTHER, SELFPAY ==
--- NOTE | ~2023-08-10 | FL_ITS ---
EXAMINATION: XR FLUOROSCOPY UPPER GI WITH AIR WITH SMALL BOWEL SERIES CLINICAL INFORMATION: Recent imaging concerning for small bowel obstruction COMPARISON: Abdominal x-ray 08/02-08/03. CT of the pelvis 07/2023 TECHNIQUE: Fluoroscopic air contrast upper GI examination was performed utilizing standard techniques with thin and thick barium and effervescent granules. Numerous spot images were obtained. Multiple films were taken every 30 minutes until contrast reached the colon. A spot image was performed to evaluate the TI. FINDINGS: [facility] imaging demonstrates retained contrast in the colon from recent CT scan on 08/08/2023, as well as a moderate degree of retained stool. Synovial herniation pit noted in the lateral right femoral head, a finding which can be associated with femoral acetabular impingement. SI joints appear normal. Mild degenerative spondylosis of the spine. Lung bases appear clear. Heart appears normal in size. No abnormal dilated loops of bowel appreciated. Contrast seen in a normal appendix. Dual and single contrast images of the esophagus demonstrate normal caliber, contour, and mucosal pattern. No evidence of stricture, mass, or ulcerations identified. There is to and fro motion of the barium column with nonpropulsive tertiary contractions seen in the mid and distal esophagus. No evidence of hiatus hernia identified. No significant gastroesophageal reflux was seen during the course of the examination and on reflux views. Dual contrast and single contrast images of the stomach demonstrated normal contour and mucosal pattern without evidence of mass, ulceration, or other abnormality. Contrast freely passed into the gastric antrum and duodenal bulb without delay. Single and air-contrast images of the duodenal bulb demonstrate no abnormality. The duodenal sweep has a normal appearance, course, and mucosal fold appearance. The imaged jejunum and ileum have a normal fold pattern and caliber. No small bowel dilation is noted. No evidence of stricture noted. Contrast reaches the colon at 30 minutes. FLUOROSCOPY TIME: 5 minutes 30 seconds Number of Spot Images: 16 Number of Cine: 8 DOSE AREA PRODUCT: 5402 uGy-m2 (microgray-meter squared) FL/FL upper GI w air w SBFT IMPRESSION: 1. To and fro motion of the barium column with nonpropulsive tertiary contractions seen in the mid and distal esophagus consistent with esophageal dysmotility. 2. Contrast reaches the colon at 30 minutes. There is no small bowel dilation present. No evidence of obstruction. 3. Small bowel series demonstrating no definitive small bowel abnormalities. This procedure was performed by Danny Faria PA-C, and supervised by Dr. Boyd
== END 2023-08-10 07:30 | disposition home or self-care (01) ==
LOC: HO.XRAY 07:29
PROVIDERS: Visit Provider Internal Medicine Gastroenterology
DX: K56.600 Partial intestinal obstruction, unspecified as to cause (principal)
CPT/HCPCS: 74246; 74248

== ENCOUNTER → 2023-08-10 07:31 | Outpatient (BNV) | payer OTHER, SELFPAY | PROVIDERS: Visit Provider Physician Assistant Surgical | DX: K56.609 Unspecified intestinal obstruction, unspecified as to partial versus complete obstruction (principal) | CPT/HCPCS: 74246 ==

== ENCOUNTER 2023-08-21 14:46 | Outpatient (AMB) | payer OTHER, SELFPAY ==
[2023-08-21 14:51] VITALS: BP 130/64; PULSE 67; BMI 34.4
--- NOTE | 2023-08-21 14:51 | MHC.OFFVIS ---
Intake Vital Signs 08/21/23 14:51 Height 6 ft 1 in Weight 261 lb 0.437 oz BMI 34.4 BP 130/64 Blood Pressure Location Rt brachial Position Sitting Pulse 67 Pulse Source Pulse Oximeter Intake Visit Reasons: 6 mth fu (KM) Intake Note: pt its here fo 6mnth f/up/ pt states that he its doing fine. Entry Level Chemist Required: No Accompanied by: Self / Same As Patient Allergies No Known Allergies Allergy (Verified 02/20/23 15:30) Medication List - Last Reconciled 08/21/23 by Qi Smith, [employer] TECHNICIAN-C lisinopril 10 mg PO DAILY metoprolol succinate ER 25 mg PO DAILY omeprazole 10 mg PO DAILY HPI 6 mth fu (KM) HPI Details Eduar is a 53-year-old male with past medical history of hypertension, obesity, paroxysmal atrial fibrillation who presents for follow-up. Today he reports not had any recurrent atrial fibrillation since his last visit in January. If he has AFib he can usually feel the heart palpitations. No chest discomfort, shortness of breath, lightheadedness, presyncope, syncope, PND, orthopnea or edema. He reports good activity tolerance. Taking meds as directed. COUNTS INCLUDE 234 BEDS AT THE [facility] Medical History Non-Hodgkin lymphoma Paroxysmal A-fib Hypertension Surgical History History of lymph node biopsy History of bone marrow biopsy Social History Alcohol intake: current Alcohol intake frequency: holidays/special occasions only Alcohol type: beer, wine and hard liquor Patient Tobacco Use Status: Never used Tobacco Review of Systems Const Denies chills, Denies fatigue, Denies fever(s), Denies frequent falls, Denies weakness, Denies weight gain and Denies weight loss ENT Denies dizziness Card Denies chest pain, Denies leg edema, Denies lightheadedness, Denies palpitations, Denies dyspnea and Denies dyspnea on exertion Resp Denies cough, Denies dyspnea and Denies dyspnea on exertion GI Denies hematochezia Musc Denies abnormal gait, Denies muscle weakness, Denies numbness, Denies radiating pain into limb and Denies tingling Neuro Denies abnormal gait, Denies dizziness, Denies frequent falls, Denies numbness, Denies tingling and Denies weakness Endo Denies fatigue and Denies palpitations Physical Exam Vital Signs: Last Vital Signs Pulse 67 08/21/23 14:51 BP 130/64 08/21/23 14:51 BMI result Body Mass Index 34.4 Const General: cooperative, healthy appearing, comfortable and no acute distress Orientation/consciousness: patient oriented x3 Neck Neck: Yes normal visual inspection Resp Effort & Inspection: normal respiratory effort Auscultation: clear to auscultation bilaterally, no crackles, no rales, no rhonchi and no wheezes Cardio Jugular venous distension: no JVD Rate: regular rate Rhythm: regular rhythm Heart sounds: S1 normal heart sound present, S2 normal heart sound present, no gallops, no murmurs and no rubs GI Inspection: Yes normal to inspection Neuro General: patient oriented x3 Extrem General: Yes normal to inspection, No no pedal edema and No calf tenderness Psych Appearance: grossly normal Mental Status: mental status grossly normal Speech and movement: Normal speech and movement present Office Procedures EKG Details: Today, read by me, normal sinus rhythm, incomplete right bundle branch block, rate 63, QTC 429 milliseconds [id number], Complete Assessment & Plan Assessment & Plan (1) Atrial fibrillation: Code(s): I48.91 - Unspecified atrial fibrillation Plan: New finding of paroxysmal atrial fibrillation on 06/12/2022 at time of ER evaluation. His symptom was palpitation, no chest discomfort or shortness of breath. He was started on metoprolol for heart rate control. He was started on Eliquis for anticoagulation. Chads Vasc score of 1 with hypertension. He states the AFib episode went on for 1 week and then he converted to sinus rhythm as shown on his 's Apple watch. EKG done last visit confirms normal sinus rhythm, rate 61. EKG done today showing sinus rhythm, heart rate 63. He has not felt any recurrent heart palpitations. He underwent a echocardiogram on 07/04/2022 showing EF 55-60%, left atrium likely dilated, right atrium not well visualized, normal valves. A Holter monitor was done on 07/04/2022 for 3 days showing sinus rhythm with average heart rate 58, heart rate range 41 to 93, rare PACs and PVCs, no AFib. An exercise stress test was done on 07/11/2022 with exercise 9 minutes without anginal symptoms with blood pressure max 220/80, no EKG changes or for ischemia. A home sleep study done on 08/02/2022 showed mild obstructive sleep apnea when sleeping in a supine position which can be treated with conservative care . All the above reviewed with him. He had previously stopped anticoagulation and has it on hand in the event that he has recurrent AFib. Stroke risk with atrial fibrillation reviewed with him in detail. The possibility of recurrent AFib discussed. He will continue to watch his heart rhythm on the Apple watch and assess for symptoms. Instructed to notify this office if he has recurrent AFib. He can seek emergency care if warranted. His chads Vasc score is low and he prefers to not take anticoagulation currently. Instructed to restart Eliquis if he has any known recurrent AFib. May need to pursue CPAP therapy if issues with recurrent AFib, patient notified. Continue metoprolol XL at 25 mg daily. Will plan for cardiology follow-up visit in 1 year, sooner if needed. He is agreeable to this plan. (2) Obstructive sleep apnea: Comment: Mild BARBIE on sleep study 08/02/2022, conservative management Code(s): G47.33 - Obstructive sleep apnea (adult) (pediatric) Plan: As above (3) Hypertension: Code(s): I10 - Essential (primary) hypertension Plan: Well controlled at present time. Will continue on lisinopril and metoprolol. Plan Time spent on chart review, documentation, interview and assessment Coding Level of Care Code Est Pt Level 4 (09744) Diagnoses Atrial fibrillation I48.91 Obstructive sleep apnea G47.33 Hypertension I10 CPT Codes EKG - CPT: 12191-[id number], Complete ([id number]) Time Spent (min) 28
== END 2023-08-21 15:22 | disposition home or self-care (01) ==
PROVIDERS: PCP Internal Medicine Medical Oncology; Visit Provider Nurse Practitioner Family
DX: I10 Essential (primary) hypertension (principal)
CPT/HCPCS: 93010; 99214

== ENCOUNTER → 2023-08-21 14:46 | Outpatient (BNVA) | payer OTHER, SELFPAY | PROVIDERS: Visit Provider Nurse Practitioner Family | DX: I48.91 Unspecified atrial fibrillation (principal); I10 Essential (primary) hypertension; G47.33 Obstructive sleep apnea (adult) (pediatric); Z79.899 Other long term (current) drug therapy | CPT/HCPCS: 93005 ==